=== PATIENT | female | born 1965 | race Hispanic/Latino ===

== ENCOUNTER → 2024-10-14 | Outpatient (CLI) | payer MEDICARE, MEDICAID ==
[~2024-10-14] MED LIST: ALPR0.25 PO; APAP/CODEINE PO; BACL10TA PO; DEXL60CA3 PO
--- NOTE | 2024-10-14 16:17 | HMCIMG ---
MR HIP LEFT WO REASON: Trochanteric bursitis, left hip COMPARISON: None TECHNIQUE: MR images are obtained in the axial sagittal and coronal plane with T1, proton density, T2 and gradient recalled sequences. FINDINGS: There is normal-appearing femoral head and in neck. There are no focal osseous lesions. There is no evidence of fracture. Bones of the acetabulum appear normal as well. Hip joint space appears preserved. There is no hip joint effusion. There is diffuse fatty infiltration of the adjacent musculature consistent with a component of atrophy. Ligaments and tendons appear unremarkable. There is no inflammation in the region of the greater trochanter or elsewhere. There is no fluid in the trochanteric bursa. Adjacent soft tissues are unremarkable. IMPRESSION: 1. No acute finding, no evidence of fracture, no evidence of bursitis or focal inflammation.
== END | disposition home or self-care (01) ==
LOC: RAH 09:09
PROVIDERS: ATTEND Student in an Organized Health Care Education/Training Program
DX: M70.62 Trochanteric bursitis, left hip (principal)
CPT/HCPCS: 73721